=== PATIENT | female | born 1995 | race African-American/Black ===

== ENCOUNTER 2018-10-31 11:35 | Emergency (ER) | payer MEDICAID, OTHER ==
[~2018-10-31] VITALS: Ht 165.1 cm; Wt 68.0 kg
[2018-10-31 11:58] VITALS: BP 134/94
== END 2018-10-31 15:29 | disposition left against medical advice (07) ==
LOC: ER 15:06
DX: Z53.21 Procedure and treatment not carried out due to patient leaving prior to being seen by health care provider (principal)

== ENCOUNTER 2019-08-25 08:27 | Emergency (ER) | payer OTHER ==
[~2019-08-25] VITALS: Ht 160 cm; Wt 69.0 kg
[2019-08-25 09:06] LABS: CLARITY URINE CLOUDY (CLEAR); COLOR URINE YELLOW (YELLOW); KETONES URINE TRACE (NEGATIVE); LEUKOCYTE ESTERASE URINE 1+ (NEGATIVE); NITRITE URINE NEGATIVE (NEGATIVE); OCCULT BLOOD URINE NEGATIVE (NEGATIVE); PH URINE 5.5 (4.5-8.0); PROTEIN URINE NEGATIVE (NEGATIVE); SPECIFIC GRAVITY URINE 1.029 (1.005-1.030); UROBILINOGEN URINE 0.2 E.U./dL (0.2-1.0)
[2019-08-25] MEDS ORDERED: CEFTRIAXONE SODIUM 250 MG/VIAL IM ONE (10:15)
[2019-08-25] MEDS ORDERED: LIDOCAINE HCL 1% 20ML VIAL (Pyxis) INJ INFIL ONE (10:15)
[2019-08-25] MEDS ORDERED: AZITHROMYCIN 500 MG TABLET PO ONE (10:15)
[2019-08-25 11:25] VITALS: BP 128/70
[2019-08-27 04:08] LABS: CHLAMYDIA TRACHOMATIS NAA Negative (Negative); NEISSERIA GONORRHOEAE NAA Negative (Negative)
== END 2019-08-25 11:20 | disposition home or self-care (01) ==
LOC: ER 08:27
DX: N76.0 Acute vaginitis (principal); N72 Inflammatory disease of cervix uteri; F12.90 Cannabis use, unspecified, uncomplicated
CPT/HCPCS: 81003; 81025; 87210; 87491; 87591; 96372; 99283; J0696; J3490